=== PATIENT | male | born 1975 | race Caucasian/White ===

== ENCOUNTER 2019-01-03 17:39 | Inpatient (IN) | payer SELFPAY ==
--- NOTE | 2019-01-03 18:24 | Emergency Department Report ---
HPI - General Chief Complaint: Allergic Reaction ED Review of Systems ROS: Stated complaint: ALLERGIC REACTION Other details as noted in HPI Critical care attestation.: If time is entered above; I have spent that time in minutes in the direct care of this critically ill patient, excluding procedure time. ED Disposition Condition: Stable
--- NOTE | 2019-01-03 18:26 | Emergency Department Report ---
Chief Complaint: Allergic Reaction Stated Complaint: ALLERGIC REACTION - HPI History of Present Illness: CC RASH ON HANDS/FEET/TONGUE ENLARGED AND RED STARTED AFTER CLEANING 2 DAYS PMH SEIZURES SINCE 2017 PSH NONE DENIES CIG RX DOES NOT KNOW- CALLING FAMILY [facility] INTACT MSE COMPLETED MSE screening note: Focused history and physical exam performed. Due to findings the following was ordered: ED Disposition for MSE Condition: Stable
[2019-01-03 19:08] LABS: Bilirubin,Urine NEG (Negative); Blood,Urine NEG (Negative); Color,Urine Yellow (Yellow); Mucus,Urine FEW /HPF; Protein,Urine <15 mg/dL mg/dL (Negative)
[2019-01-03 19:33] LABS: Hematocrit 40.4 % (35.5-45.6); Hemoglobin 13.7 gm/dl (11.8-15.2); Mean Corpuscular HGB Conc 34 % (32-34); Mean Corpuscular Volume 85 fl (84-94); Platelet Count 260 K/mm3 (140-440); Red Blood Count 4.74 M/mm3 (3.65-5.03); Red Cell Distribution Width 14.2 % (13.2-15.2)
[2019-01-03 20:10] LABS: Basophils % (Manual) 0 % (0.0-1.8); RBC Morphology Normal; Total Cells Counted 100
[2019-01-03 20:15] LABS: Alanine Aminotransferase 70 units/L (7-56); Albumin 4.3 g/dL (3.9-5); BUN/Creatinine Ratio 12; Blood Urea Nitrogen 12 mg/dL (9-20); Calcium 9.1 mg/dL (8.4-10.2); Hemolysis Index 10
[2019-01-03] MEDS ORDERED: SOLU-Medrol ONE (20:47)
[2019-01-03] MEDS ORDERED: BENADRYL ONE (20:48)
[2019-01-03] MEDS ORDERED: PEPCID IV ONE ×2 (20:48→20:53)
[2019-01-03] MEDS ORDERED: BENADRYL IV ONE (20:53)
[2019-01-03] MEDS ORDERED: SOLU-Medrol IV ONE (20:53)
--- NOTE | 2019-01-03 21:00 | Emergency Department Report ---
HPI - General Chief Complaint: Allergic Reaction Time Seen by Provider: 01/03/19 18:44 - HPI HPI: Room 24 The patient is a 43-year-old male presenting with a chief complaint of allergic reaction. Family states approximately 5 days ago the patient was in his usual state of health when he began to clean the bathroom using Comet detergent. Family states the following day the patient awakened noticing swelling of his face hands and tongue. Patient noticed a rash over his feet and extremities. Patient admitted to subjective fever. Patient complains of pain from his tongue swelling but denies shortness of breath. The patient's significant other states she's been treating him with Benadryl for the past couple days but it has not helped Location: [See above] Duration: 4 days Quality: Swelling Severity: Moderate Modifying factors: [see above] Context: [see above] Mode of transportation: [not driving] ED Past Medical Hx - Past Medical History Previous Medical History?: Yes Hx Seizures: Yes - Surgical History Past Surgical History?: No - Family History Family history: no significant - Social History Smoking Status: Never Smoker Substance Use Type: None (denies illicit drug use) ED Review of Systems ROS: Stated complaint: ALLERGIC REACTION Other details as noted in HPI Constitutional: no symptoms reported Eyes: denies: eye pain ENT: other (tongue swelling) Respiratory: denies: shortness of breath Cardiovascular: denies: chest pain Endocrine: no symptoms reported Gastrointestinal: denies: abdominal pain Genitourinary: denies: dysuria Musculoskeletal: denies: back pain Skin: rash Neurological: denies: headache Physical Exam - Physical Exam Vital Signs: Vital Signs 01/03/19 01/03/19 18:22 20:45 Temperature 98.4 F Pulse Rate 84 68 Respiratory 16 12 Rate Blood Pressure 121/88 Blood Pressure 127/73 [Left] O2 Sat by Pulse 100 100 Oximetry Physical Exam: GENERAL: The patient is well-developed well-nourished male lying on stretcher not appearing to be in acute distress. [] HEENT: Normocephalic. Atraumatic. Extraocular motions are intact. Subglottic edema. Uvula midline. Posterior oropharynx within normal limits NECK: Supple. No stridor CHEST/LUNGS: Clear to auscultation. There is no respiratory distress noted. HEART/CARDIOVASCULAR: Regular. There is no tachycardia. There is no gallop rub or murmur. ABDOMEN: Abdomen is soft, nontender. Patient has normal bowel sounds. There is no abdominal distention. SKIN: There is a fine papular rash over bilateral upper extremities. There is no edema. There is no diaphoresis. NEURO: The patient is awake, alert, and oriented. The patient is cooperative. The patient has normal speech MUSCULOSKELETAL: There is no evidence of acute injury. ED Course Vital Signs 01/03/19 01/03/19 18:22 20:45 Temperature 98.4 F Pulse Rate 84 68 Respiratory 16 12 Rate Blood Pressure 121/88 Blood Pressure 127/73 [Left] O2 Sat by Pulse 100 100 Oximetry ED Medical Decision Making - Lab Data Result diagrams: 01/03/19 19:09 01/03/19 19:09 Laboratory Tests 01/03/19 01/03/19 01/03/19 18:44 19:09 19:09 WBC 11.0 RBC 4.74 Hgb 13.7 Hct 40.4 MCV 85 MCH 29 MCHC 34 RDW 14.2 Plt Count 260 Eos % (Auto) Vehicle Return Associate Add Manual Diff Complete Total Counted 100 Seg Neuts % (Manual) 65.0 Band Neutrophils % 0 Lymphocytes % (Manual) 9.0 L Reactive Lymphs % (Man) 0 Monocytes % (Manual) 7.0 Eosinophils % (Manual) 19.0 H Basophils % (Manual) 0 Metamyelocytes % 0 Myelocytes % 0 Promyelocytes % 0 Blast Cells % 0 Nucleated RBC % Not Reportable Seg Neutrophils # Man 7.2 Band Neutrophils # 0.0 Lymphocytes # (Manual) 1.0 L Abs React Lymphs (Man) 0.0 Monocytes # (Manual) 0.8 Eosinophils # (Manual) 2.1 H Basophils # (Manual) 0.0 Metamyelocytes # 0.0 Myelocytes # 0.0 Promyelocytes # 0.0 Blast Cells # 0.0 WBC Morphology Not Reportable Hypersegmented Neuts Not Reportable Hyposegmented Neuts Not Reportable Hypogranular Neuts Not Reportable Smudge Cells Not Reportable Toxic Granulation Not Reportable Toxic Vacuolation Not Reportable Dohle Bodies Not Reportable Pelger-Huet Anomaly Not Reportable Inez Rods Not Reportable Platelet Estimate Not Reportable Clumped Platelets Not Reportable Plt Clumps, EDTA Not Reportable Large Platelets Not Reportable Giant Platelets Not Reportable Platelet Satelliting Not Reportable Plt Morphology Comment Not Reportable RBC Morphology Normal Dimorphic RBCs Not Reportable Polychromasia Not Reportable Hypochromasia Not Reportable Poikilocytosis Not Reportable Anisocytosis Not Reportable Microcytosis Not Reportable Macrocytosis Not Reportable Spherocytes Not Reportable Pappenheimer Bodies Not Reportable Sickle Cells Not Reportable Target Cells Not Reportable Tear Drop Cells Not Reportable Ovalocytes Not Reportable Helmet Cells Not Reportable [place] Bodies Not Reportable [place] Rings Not Reportable Reilly Cells Not Reportable Bite Cells Not Reportable Crenated Cell Not Reportable Elliptocytes Not Reportable Acanthocytes (Spur) Not Reportable Rouleaux Not Reportable Hemoglobin C Crystals Not Reportable Schistocytes Not Reportable Malaria parasites Not Reportable Robert Bodies Not Reportable Hem Pathologist Commnt No Sodium 140 Potassium 3.8 Chloride 99.7 Carbon Dioxide 29 Anion Gap 15 BUN 12 Creatinine 1.0 Estimated GFR > 60 BUN/Creatinine Ratio 12 Glucose 121 H Calcium 9.1 Total Bilirubin 0.20 AST 39 ALT 70 H Alkaline Phosphatase 110 Total Protein 7.9 Albumin 4.3 Albumin/Globulin Ratio 1.2 Urine Color Yellow Urine Turbidity Clear Urine pH 5.0 Ur Specific [place] 1.024 Urine Protein <15 mg/dl Urine Glucose (UA) Neg Urine Ketones Neg Urine Blood Neg Urine Nitrite Neg Urine Bilirubin Neg Urine Urobilinogen 2.0 Ur Leukocyte Esterase Neg Urine WBC (Auto) 1.0 Urine RBC (Auto) 4.0 U Epithel Cells (Auto) < 1.0 Urine Mucus Few Carbamazepine 01/03/19 19:09 WBC RBC Hgb Hct MCV MCH MCHC RDW Plt Count Eos % (Auto) Add Manual Diff Total Counted Seg Neuts % (Manual) Band Neutrophils % Lymphocytes % (Manual) Reactive Lymphs % (Man) Monocytes % (Manual) Eosinophils % (Manual) Basophils % (Manual) Metamyelocytes % Myelocytes % Promyelocytes % Blast Cells % Nucleated RBC % Seg Neutrophils # Man Band Neutrophils # Lymphocytes # (Manual) Abs React Lymphs (Man) Monocytes # (Manual) Eosinophils # (Manual) Basophils # (Manual) Metamyelocytes # Myelocytes # Promyelocytes # Blast Cells # WBC Morphology Hypersegmented Neuts Hyposegmented Neuts Hypogranular Neuts Smudge Cells Toxic Granulation Toxic Vacuolation Dohle Bodies Pelger-Huet Anomaly Inez Rods Platelet Estimate Clumped Platelets Plt Clumps, EDTA Large Platelets Giant Platelets Platelet Satelliting Plt Morphology Comment RBC Morphology Dimorphic RBCs Polychromasia Hypochromasia Poikilocytosis Anisocytosis Microcytosis Macrocytosis Spherocytes Pappenheimer Bodies Sickle Cells Target Cells Tear Drop Cells Ovalocytes Helmet Cells Holley-[place] Bodies [place] Rings [place] Cells Bite Cells Crenated Cell Elliptocytes Acanthocytes (Spur) Rouleaux Hemoglobin C Crystals Schistocytes Malaria parasites Robert Bodies Hem Pathologist Commnt Sodium Potassium Chloride Carbon Dioxide Anion Gap BUN Creatinine Estimated GFR BUN/Creatinine Ratio Glucose Calcium Total Bilirubin AST ALT Alkaline Phosphatase Total Protein Albumin Albumin/Globulin Ratio Urine Color Urine Turbidity Urine pH Ur Specific [place] Urine Protein Urine Glucose (UA) Urine Ketones Urine Blood Urine Nitrite Urine Bilirubin Urine Urobilinogen Ur Leukocyte Esterase Urine WBC (Auto) Urine RBC (Auto) U Epithel Cells (Auto) Urine Mucus Carbamazepine 7.5 - Radiology Data Radiology results: report reviewed (lateral soft tissue neck x-ray), image reviewed (lateral soft tissue neck x-ray) interpreted by me: Lateral soft tissue neck x-ray-no prevertebral swelling, no evidence of epiglottitis [facility] [address] [place] [address] XRay Report Signed Patient: EVONNE RYDER MR#: [id number] : 1975 Acct:[id number] Age/Sex: 43 / M ADM Date: 01/03/19 Loc: ED Attending Dr: Ordering Physician: ROSS CASTRO MD Date of Service: 01/03/19 Procedure(s): XR neck soft tissue Accession Number(s): [id number] cc: ROSS CASTRO MD Fluoro Time In Minutes: FINAL REPORT EXAM: XR NECK SOFT TISSUE HISTORY: allergic reaction, tongue swelling TECHNIQUE: Soft tissue neck two views PRIORS: None. FINDINGS: No evidence for prevertebral soft tissue widening. The skeletal structures demonstrate no acute change No evidence for pharyngeal distention or epiglottic enlargement. No abnormal soft tissue gas collections are identified. IMPRESSION: Negative soft tissue neck Transcribed By: JORGE Dictated By: KERWIN WARREN MD Electronically Authenticated By: KERWIN WARREN MD Signed Date/Time: 01/03/192206 DD/ 05 TD/TT: 01/03/192205 - Differential Diagnosis acute allergic reaction Critical care attestation.: If time is entered above; I have spent that time in minutes in the direct care of this critically ill patient, excluding procedure time. ED Disposition Clinical Impression: Acute allergic reaction Disposition: OP ADMIT IP TO THIS HOSP Is pt being admited?: Yes Does the pt Need Aspirin: Yes Condition: Stable Referrals: PRIMARY CARE,MD [Primary Care Provider] - 3-5 Days Time of Disposition: 22:13 (hospitalist paged (Dr Red))
--- NOTE | 2019-01-03 22:07 | XRay Report ---
FINAL REPORT EXAM: XR NECK SOFT TISSUE HISTORY: allergic reaction, tongue swelling TECHNIQUE: Soft tissue neck two views PRIORS: None. FINDINGS: No evidence for prevertebral soft tissue widening. The skeletal structures demonstrate no acute zambrano e No evidence for pharyngeal distention or epiglottic enlargement. No abnormal soft tissue gas collecti ons are identified. IMPRESSION: Negative soft tissue neck
[2019-01-03 22:23] LABS: INR 1.02 (0.87-1.13)
[2019-01-03 22:24] LABS: Partial Thromboplastin Time 30.3 Sec. (24.2-36.6)
[2019-01-03] MEDS ORDERED: BENADRYL IV PRN (23:56)
[2019-01-03] MEDS ORDERED: ZOFRAN IV PRN (23:57)
[2019-01-04] MEDS: NACL 0.9% 1000 ML 1,000 ML IV SCH ×3 (00:23→17:08)
[2019-01-04] MEDS: SOLU-Medrol IV SCH ×3 (04:04→21:05)
--- NOTE | 2019-01-04 04:41 | History and Physical Report ---
CHIEF COMPLAINT: Swelling of the tongue, lips with itching in the hands. HISTORY OF PRESENT ILLNESS: The patient is a 43-year-old male, who was in his normal good state of health until 5 days ago when the patient cleaned his bathroom using Comet detergent. The family noted that the following day after the patient cleaned the bathroom, he woke up noticing swelling in the face, has swelling around the mouth and the tongue and then starting having rashes in his extremities especially the hand with some itching. There is history of some subjective fever. The patient denies history of chest pain. Denies history of shortness of breath and was receiving treatment at home with Benadryl for few days with symptoms not abating and the patient decided to come to the Emergency Room. PAST MEDICAL HISTORY: Pertinent for seizure disorder. PAST SURGICAL HISTORY: Unremarkable. FAMILY HISTORY: Family history is noncontributory. SOCIAL HISTORY: The patient does not smoke, does not drink alcohol and does not use illicit drugs. MEDICATIONS: The patient is on [id number] medications notably Benadryl. ALLERGIES: There are no known drug allergies. REVIEW OF SYSTEMS: CONSTITUTIONAL: There is fever with no chills, no diaphoresis. HEENT: There is no headache or sore throat, but there is pain in the tongue area and swelling in the tongue area. CARDIOVASCULAR SYSTEM: There is no chest pain or orthopnea. RESPIRATORY SYSTEM: There is no shortness of breath or cough. GASTROINTESTINAL SYSTEM: There is no abdominal pain, nausea, vomiting, diarrhea or constipation. NEUROLOGICAL SYSTEM: There is no numbness, no dizziness, no altered mental status. MUSCULOSKELETAL SYSTEM: There is no joint pain or swelling. DERMATOLOGICAL SYSTEM: There is skin rash and there is itching. GENITOURINARY SYSTEM: There is no dysuria, hematuria, or flank pain. Rest of system review is normal. PHYSICAL EXAMINATION: GENERAL: At the time of exam, the patient was found to be alert, oriented x 3 and not in acute distress. VITAL SIGNS: At the initial time of presentation showed temperature of 98.4 degrees Fahrenheit, pulse of 84, respirations 16, blood pressure 127/73, O2 sat 100% on room air. HEENT: Showed pupils to be equal, round, reactive to light and accommodating. Extraocular muscles are intact. Oral mucosa shows swelling of the lips and swelling of the tongue. NECK: Supple with no JVD or carotid bruit. CARDIOVASCULAR SYSTEM: Showed normal first and second heart sounds with no gallops or murmurs. RESPIRATORY SYSTEM: Show good air entry on both sides of the lungs with no abnormal breath sounds. GASTROINTESTINAL SYSTEM: Show abdomen to be full, soft, nontender with no organomegaly or rigidity. NEUROLOGICAL: Shows no focal deficit. MUSCULOSKELETAL SYSTEM: Show no joint swelling or tenderness. DERMATOLOGICAL SYSTEM: Show some maculopapular involving the palms, the wrists area. GENITOURINARY SYSTEM: Show no costovertebral angle tenderness. PERTINENT LABORATORY DATA AND IMAGING STUDIES: The patient had x-ray of the soft tissue of the neck done that show negative soft tissue of the neck and the lab results show CBC with unremarkable results except for elevated eosinophil count of 19% in the CBC differential. The patient's coagulation studies were unremarkable. Chemistry shows slightly elevated ALT of 70 with normal AST. Urinalysis was unremarkable. DIAGNOSIS: Allergic reaction, most likely due to Comet detergent. PLAN OF ACTION: 1. The patient will be admitted to telemetry. 2. The patient will be on IV normal saline running at 125 mL an hour. 3. The patient will be on IV Solu-Medrol 60 mg IV every 8 hours and will be on IV Benadryl 25 mg every 6 hours as needed for itching and rash. 4. The patient will be on Pepcid 20 mg by mouth twice daily and will be on p.r.n. medications like Tylenol 650 mg by mouth every 4 hours for fever and headache and IV Zofran 4 mg every 8 hours as needed for nausea and vomiting. 5. The patient's diet will be regular diet. JOB# [id number] OCN/NTS MTDD
[2019-01-04] MEDS: PEPCID PO SCH ×2 (09:43→22:21)
[2019-01-04] MEDS: TYLENOL PO PRN (09:46)
--- NOTE | 2019-01-04 10:28 | Event Note ---
Date: 01/04/19 This is a follow-up from an admission earlier this morning. The patient has been seen and examined. We will continue the plan as outlined in H&P. Total visit time 25 minutes with greater than 50% spent with coordination of care and counseling.
[2019-01-05] MEDS: SOLU-Medrol IV SCH ×3 (04:45→20:59)
[2019-01-05] MEDS: PEPCID PO SCH ×2 (09:39→21:54)
[2019-01-05] MEDS: NACL 0.9% 1000 ML 1,000 ML IV SCH (09:55)
--- NOTE | 2019-01-05 17:51 | Progress Note ---
Assessment and Plan Assessment and plan: Allergic reaction to detergent - Patient is admitted to the floor cause of tongue swelling - Patient IV Solu-Medrol, Pepcid, and Benadryl - Rash resolved - We will monitor the patient for one more day and see if and swelling is resolved and consider discharge Seizure disorder - Continue home medications DVT prophylaxis - on lovenox Disposition - Positive discharge tomorrow History Interval history: Patient was seen and evaluated this morning, patient has tongue swelling and deep voice. Not in respiratory distress, no wheezing. Hospitalist Physical - Physical exam Narrative exam: Not in cardiopulmonary distress. The patient appeared well nourished and normally developed. Vital signs as documented. Head exam is unremarkable. No scleral icterus . Mild tongue swelling. Neck is without jugular venous distension, thyromegaly, or carotid bruits. Lungs are clear to auscultation. Cardiac exam reveals regular rate and Rhythm. First and second heart sounds normal. No murmurs, rubs or gallops. Abdominal exam reveals normal bowel sounds, no masses, no organomegaly and no aortic enlargement. Extremities are nonedematous and both femoral and pedal pulses are normal. DRY WALL APPLICATOR: Alert and oriented 3. No focal weakness. - Constitutional Vitals: Temp Pulse Resp BP Pulse Ox 98.1 F 69 18 123/80 95 01/05/19 12:00 01/05/19 12:00 01/05/19 12:00 01/05/19 12:00 01/05/19 12:00 Results - Labs CBC & Chem 7: 01/03/19 19:09 01/03/19 19:09 Labs: Laboratory Last Values WBC 11.0 K/mm3 (4.5-11.0) 01/03/19 19:09 RBC 4.74 M/mm3 (3.65-5.03) 01/03/19 19:09 Hgb 13.7 gm/dl (11.8-15.2) 01/03/19 19:09 Hct 40.4 % (35.5-45.6) 01/03/19 19:09 MCV 85 fl (84-94) 01/03/19 19:09 MCH 29 pg (28-32) 01/03/19 19: MCHC 34 % (32-34) 01/03/19 19:09 RDW 14.2 % (13.2-15.2) 01/03/19 19:09 Plt Count 260 K/mm3 (140-440) 01/03/19 19:09 Eos % (Auto) Travel Registered Nurse Nicu 01/03/19 19:09 Add Manual Diff Complete 01/03/19 19:09 Total Counted 100 01/03/19 19:09 Seg Neuts % (Manual) 65.0 % (40.0-70.0) 01/03/19 19:09 Band Neutrophils % 0 % 01/03/19 19:09 Lymphocytes % (Manual) 9.0 % (13.4-35.0) L 01/03/19 19:09 Reactive Lymphs % (Man) 0 % 01/03/19 19:09 Monocytes % (Manual) 7.0 % (0.0-7.3) 01/03/19 19:09 Eosinophils % (Manual) 19.0 % (0.0-4.3) H 01/03/19 19:09 Basophils % (Manual) 0 % (0.0-1.8) 01/03/19 19:09 Metamyelocytes % 0 % 01/03/19 19:09 Myelocytes % 0 % 01/03/19 19:09 Promyelocytes % 0 % 01/03/19 19:09 Blast Cells % 0 % 01/03/19 19:09 Nucleated RBC % Not Reportable 01/03/19 19:09 Seg Neutrophils # Man 7.2 K/mm3 (1.8-7.7) 01/03/19 19:09 Band Neutrophils # 0.0 K/mm3 01/03/19 19:09 Lymphocytes # (Manual) 1.0 K/mm3 (1.2-5.4) L 01/03/19 19:09 Abs React Lymphs (Man) 0.0 K/mm3 01/03/19 19:09 Monocytes # (Manual) 0.8 K/mm3 (0.0-0.8) 01/03/19 19:09 Eosinophils # (Manual) 2.1 K/mm3 (0.0-0.4) H 01/03/19 19:09 Basophils # (Manual) 0.0 K/mm3 (0.0-0.1) 01/03/19 19:09 Metamyelocytes # 0.0 K/mm3 01/03/19 19:09 Myelocytes # 0.0 K/mm3 01/03/19 19:09 Promyelocytes # 0.0 K/mm3 01/03/19 19:09 Blast Cells # 0.0 K/mm3 01/03/19 19:09 WBC Morphology Not Reportable 01/03/19 19:09 Hypersegmented Neuts Not Reportable 01/03/19 19:09 Hyposegmented Neuts Not Reportable 01/03/19 19:09 Hypogranular Neuts Not Reportable 01/03/19 19:09 Smudge Cells Not Reportable 01/03/19 19:09 Toxic Granulation Not Reportable 01/03/19 19:09 Toxic Vacuolation Not Reportable 01/03/19 19:09 Dohle Bodies Not Reportable 01/03/19 19:09 Pelger-Huet Anomaly Not Reportable 01/03/19 19:09 Inez Rods Not Reportable 01/03/19 19:09 Platelet Estimate Not Reportable 01/03/19 19:09 Clumped Platelets Not Reportable 01/03/19 19:09 Plt Clumps, EDTA Not Reportable 01/03/19 19:09 Large Platelets Not Reportable 01/03/19 19:09 Giant Platelets Not Reportable 01/03/19 19:09 Platelet Satelliting Not Reportable 01/03/19 19:09 Plt Morphology Comment Not Reportable 01/03/19 19:09 RBC Morphology Normal 01/03/19 19:09 Dimorphic RBCs Not Reportable 01/03/19 19:09 Polychromasia Not Reportable 01/03/19 19:09 Hypochromasia Not Reportable 01/03/19 19:09 Poikilocytosis Not Reportable 01/03/19 19:09 Anisocytosis Not Reportable 01/03/19 19:09 Microcytosis Not Reportable 01/03/19 19:09 Macrocytosis Not Reportable 01/03/19 19:09 Spherocytes Not Reportable 01/03/19 19:09 Pappenheimer Bodies Not Reportable 01/03/19 19:09 Sickle Cells Not Reportable 01/03/19 19:09 Target Cells Not Reportable 01/03/19 19:09 Tear Drop Cells Not Reportable 01/03/19 19:09 Ovalocytes Not Reportable 01/03/19 19:09 Helmet Cells Not Reportable 01/03/19 19:09 Holley-[place] Bodies Not Reportable 01/03/19 19:09 [place] Rings Not Reportable 01/03/19 19:09 Reilly Cells Not Reportable 01/03/19 19:09 Bite Cells Not Reportable 01/03/19 19:09 Crenated Cell Not Reportable 01/03/19 19:09 Elliptocytes Not Reportable 01/03/19 19:09 Acanthocytes (Spur) Not Reportable 01/03/19 19:09 Rouleaux Not Reportable 01/03/19 19:09 Hemoglobin C Crystals Not Reportable 01/03/19 19:09 Schistocytes Not Reportable 01/03/19 19:09 Malaria parasites Not Reportable 01/03/19 19:09 Robert Bodies Not Reportable 01/03/19 19:09 Hem Pathologist Commnt No 01/03/19 19:09 PT 14.0 Sec. (12.2-14.9) 01/03/19 21:55 INR 1.02 (0.87-1.13) 01/03/19 21:55 APTT 30.3 Sec. (24.2-36.6) 01/03/19 21:55 Sodium 140 mmol/L (137-145) 01/03/19 19:09 Potassium 3.8 mmol/L (3.6-5.0) 01/03/19 19:09 Chloride 99.7 mmol/L (98-107) 01/03/19 19:09 Carbon Dioxide 29 mmol/L (22-30) 01/03/19 19:09 Anion Gap 15 mmol/L 01/03/19 19:09 BUN 12 mg/dL (9-20) 01/03/19 19:09 Creatinine 1.0 mg/dL (0.8-1.5) 01/03/19 19:09 Estimated GFR > 60 ml/min 01/03/19 19:09 BUN/Creatinine Ratio 12 % 01/03/19 19:09 Glucose 121 mg/dL (75-100) H 01/03/19 19:09 Calcium 9.1 mg/dL (8.4-10.2) 01/03/19 19:09 Total Bilirubin 0.20 mg/dL (0.1-1.2) 01/03/19 19:09 AST 39 units/L (5-40) 01/03/19 19:09 ALT 70 units/L (7-56) H 01/03/19 19:09 Alkaline Phosphatase 110 units/L (35-129) 01/03/19 19:09 Total Protein 7.9 g/dL (6.3-8.2) 01/03/19 19:09 Albumin 4.3 g/dL (3.9-5) 01/03/19 19:09 Albumin/Globulin Ratio 1.2 % 01/03/19 19:09 Urine Color Yellow (Yellow) 01/03/19 18:44 Urine Turbidity Clear (Clear) 01/03/19 18:44 Urine pH 5.0 (5.0-7.0) 01/03/19 18:44 Ur Specific [place] 1.024 (1.003-1.030) 01/03/19 18:44 Urine Protein <15 mg/dl mg/dL (Negative) 01/03/19 18:44 Urine Glucose (UA) Neg mg/dL (Negative) 01/03/19 18:44 Urine Ketones Neg mg/dL (Negative) 01/03/19 18:44 Urine Blood Neg (Negative) 01/03/19 18:44 Urine Nitrite Neg (Negative) 01/03/19 18:44 Urine Bilirubin Neg (Negative) 01/03/19 18:44 Urine Urobilinogen 2.0 mg/dL (<2.0) 01/03/19 18:44 Ur Leukocyte Esterase Neg (Negative) 01/03/19 18:44 Urine WBC (Auto) 1.0 /HPF (0.0-6.0) 01/03/19 18:44 Urine RBC (Auto) 4.0 /HPF (0.0-6.0) 01/03/19 18:44 U Epithel Cells (Auto) < 1.0 /HPF (0-13.0) 01/03/19 18:44 Urine Mucus Few /HPF 01/03/19 18:44 Carbamazepine 7.5 ug/mL (4-12) 01/03/19 19:09 RPR Nonreactive (Nonreactive) 01/03/19 19:09 Nutrition/Malnutrition Assess - Dietary Evaluation Nutrition/Malnutrition Findings: Nutrition Notes Start: 01/05/19 15:44 Freq: Status: Active Protocol: Document 01/05/19 15:44 OL (Rec: 01/05/19 15:50 OL [id number]) Nutrition Notes Need for 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 Pt. with swollen throat/mouth. He reports taste is altered and has difficulty chewing solid foods. Pt. reports improvements in PO tolerance compared to earlier this week. No wt. changes noted at this time. Pt. amenable to ONS. Burn Absent Trauma Absent Difficulty In Swallowing Chewing #1 Nutrition Diagnosis Biting/Chewing (masticatory) difficulty Etiology allergic reactions As Evidenced by Signs and Symptoms throat/mouth pain, pt. unable to tolerate solid textures at this time Is patient on ventilator? No Is Patient Ambulatory and/or Out of Bed Yes REE-([facility]-ambulatory/OOB) [ [id number] [id number]] Calculation Used for Recommendations [facility] Additional Notes protein (0.8-1g/kg): 75-94g daily fluid: 1mL/kcal or per MD Nutrition Intervention Change Diet Order: Continue regular, add full liquid soup to meals Add Supplement/Snack (indicate name/kcal Ensure Enlive BID /protein ) Provides kCal: 700 Provides Protein (gm) 40 Goal #1 ONS tolerance Goal #2 PO and ONS to meet 75-100% of energy and protein needs Follow-Up By: 01/07/19 Additional Comments f/u: intakes
[2019-01-05] MEDS: TYLENOL PO PRN (20:57)
[2019-01-05] MEDS ORDERED: LOVENOX SUB-Q SCH (22:00)
[2019-01-06] MEDS: SOLU-Medrol IV SCH (03:56)
[2019-01-06] MEDS: PEPCID PO SCH (10:24)
[2019-01-06 17:51] VITALS: BP 111/75
--- NOTE | 2019-01-06 18:34 | Discharge Summary ---
Providers - Providers Date of Admission: 01/03/19 22:30 Attending physician: HUGH REDMAN MD Primary care physician: [facility] Hospitalization Reason for admission: allergic reaction Condition: Stable Pertinent studies: x-ray of the neck soft tissue IMPRESSION: Negative soft tissue neck Hospital course: 43-year-old male presenting with a chief complaint of allergic reaction. Family states approximately 5 days ago the patient was in his usual state of health when he began to clean the bathroom using Comet detergent. Family states the following day the patient awakened noticing swelling of his face hands and tongue. Patient noticed a rash over his feet and extremities. Patient admitted to subjective fever. Patient complains of pain from his tongue swelling but denies shortness of breath. The patient's significant other states she's been treating him with Benadryl for the past couple days but it has not helped. The patient has swelling of face, tongue and change in voice. The patient was admitted to the floor and treated with IV solumedrol, Benadryl and famotidine. patient was closely observed for respiratory compromise. Patient's swelling and rash subsiding and no signs of respiratory distress and discharged home in a stable condition. patient was given PO medication at the time of discharge. Disposition: DC-01 TO HOME OR SELFCARE Time spent for discharge: 32 minutes - Discharge Diagnoses (1) Acute allergic reaction Status: Acute Core Measure Documentation - Palliative Care Palliative Care/ Comfort Measures: Not Applicable - Core Measures Any of the following diagnoses?: none Exam - Physical Exam Narrative exam: Not in cardiopulmonary distress. The patient appeared well nourished and normally developed. Vital signs as documented. Head exam is unremarkable. No scleral icterus . Mild tongue swelling. Neck is without jugular venous distension, thyromegaly, or carotid bruits. Lungs are clear to auscultation. Cardiac exam reveals regular rate and Rhythm. First and second heart sounds normal. No murmurs, rubs or gallops. Abdominal exam reveals normal bowel sounds, no masses, no organomegaly and no aortic enlargement. Extremities are nonedematous and both femoral and pedal pulses are normal. 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 No focal weakness. - Constitutional Vitals: Temp Pulse Resp BP Pulse Ox 97.8 F 64 18 111/75 97 01/06/19 16:26 01/06/19 03:34 01/06/19 16:26 01/06/19 16:26 01/06/19 03:34 Plan Activity: no restrictions Weight Bearing Status: Full Weight Bearing Diet: regular Follow up with: PRIMARY CARE, [Primary Care Provider] - 3-5 Days JOSE INMAN MD [Staff Physician] - 7 Days Prescriptions: diphenhydrAMINE [Benadryl CAP] 25 mg PO Q8HR PRN #20 capsule PRN Reason: Itching Famotidine 20 mg PO BID #20 tablet Prednisone [predniSONE 10 mg (6-Day Pack, 21 Tabs)] 10 mg PO .TAPER #1 tab.ds.pk
== END 2019-01-06 19:30 | disposition home or self-care (01) | DRG 916 ==
LOC: ED 17:39 → 4A 22:30
PROVIDERS: ADMIT Internal Medicine; ATTEND Internal Medicine
DX: T78.49XA Other allergy, initial encounter (principal); X58.XXXA Exposure to other specified factors, initial encounter
CPT/HCPCS: 36415; 70360; 80053; 80156; 81001; 85007; 85025; 85610; 85730; 86592; 87040; G0378; J1200; J1650; J2920; J2930; J7030

== ENCOUNTER 2019-01-28 16:35 | Emergency (ER) | payer OTHER ==
[2019-01-28 16:41] VITALS: BP 124/66
--- NOTE | 2019-01-28 16:41 | Emergency Department Report ---
Blank Doc - Documentation Documentation: This is a 43-year-old male that presents with generalized body rash x3 weeks. This initial assessment/diagnostic orders/clinical plan/treatment(s) is/are subject to change based on patient's health status, clinical progression and re- assessment by fellow clinical providers in the ED. Further treatment and workup at subsequent clinical providers discretion. Patient/guardians urged not to elope from the ED as their condition may be serious if not clinically assessed and managed. Initial orders include: 1- Patient sent to [facility] for further evaluation and treatment
[2019-01-28] MEDS ORDERED: DECADRON IM ONE (18:28)
--- NOTE | 2019-01-28 18:33 | Emergency Department Report ---
ED Rash HPI - HPI Chief Complaint: Allergic Reaction Stated Complaint: ALLERGIC REACTION/RASH Time Seen by Provider: 01/28/19 16:40 Location: Other Suspected Cause: Other (ALLERGIC RESPONSE DATING BACK 1 MONTH) Rash Symptoms: Yes Itching, No Facial Swelling, No Tongue/Oral Swelling, No Breathing Difficulties, No Choking Sensation, No Wheezing/Dyspnea, No Peeling, No Blistering, No Fever, No Lightheaded, No Malaise, No Myalgias Severity: moderate Other History: Patient is a 43-year-old -[place] male who comes to the ER today with a one-month history of an allergic reaction to what they thought was calm cleaning detergent. Patient ended up being admitted for this reaction due to some airway issues, subsequently discharged home. He was sent home on baclofen and Pepcid as well as some prednisone but he states that he now has what appears to be a chronic dermatitis rash that is on his arms and now his torso. He has no oral OR EYE lesions. He is not tachycardic and is not hypotensive. There is no desquamation of the skin. This is not concerning for Olivier-Luan's or such. It appears to be more of a chronic type dermatitis that patient is going to need either [facility] or the burn clinic due to their skin expertise, to get resolution 4. The skin is very dry I think the dry skin itself is at least contributing or confounding his underlying skin issues. PMH. SEIZURES ED Review of Systems ROS: Stated complaint: ALLERGIC REACTION/RASH Other details as noted in HPI Comment: All other systems reviewed and negative Constitutional: denies: see HPI Eyes: denies: eye pain ENT: denies: ear pain Respiratory: denies: see HPI Cardiovascular: denies: dyspnea on exertion Endocrine: denies: intolerance to cold Gastrointestinal: denies: vomiting Genitourinary: denies: urgency Musculoskeletal: denies: back pain Skin: denies: rash Neurological: denies: headache Psychiatric: denies: depression Hematological/Lymphatic: denies: easy bleeding ED Past Medical Hx - Past Medical History Previous Medical History?: Yes Hx Seizures: Yes - Surgical History Past Surgical History?: No - Social History Smoking Status: Never Smoker - Medications Home Medications: Home Medications Medication Instructions Recorded Confirmed Last Taken Type carBAMazepine [Carbamazepine] 200 mg PO BID 01/03/19 01/03/19 Unknown History Famotidine 20 mg PO BID #20 tablet 01/06/19 Unknown Rx diphenhydrAMINE [Benadryl CAP] 25 mg PO Q8HR PRN #20 capsule 01/06/19 Unknown Rx Rash Exam - Exam General: Vital signs noted. No distress. Alert and acting appropriately. HEENT: No Periorbital Edema, No Conjuctival Injection, No Chemosis, No Perioral Edema, No Tongue Edema, No Uvular Edema, No Compromised Airway, No Drooling Lungs: Yes Good Air Exchange, No Wheezes, No Ronchi, No Stridor, No Cough, No Labored Respirations, No Retractions, No Use of Accessory Muscles, No Other Abnormal Lung Sounds Heart: Yes Regular, No Murmur Skin: Yes Excoriations, Yes Erythema, No Urticarial Rash, No Maculopapular Rash, No Morbilliform rash, No Bulla(e), No Weeping, No Tenderness, No Edema, No Encrustations Other: Positive: Abdomen Normal, Neurologic Normal, Musculoskeletal Normal ED Course Vital Signs 01/28/19 16:41 Temperature 97.9 F Pulse Rate 62 Respiratory 16 Rate Blood Pressure 124/66 O2 Sat by Pulse 100 Oximetry ED Medical Decision Making - Medical Decision Making SEE HPI Vital Signs 01/28/19 16:41 Temperature 97.9 F Pulse Rate 62 Respiratory 16 Rate Blood Pressure 124/66 O2 Sat by Pulse 100 Oximetry MEDICATED WITH DECADRON A long discussion with the patient about his need to see dermatology or a learning operations specialist to help get to the bottom of his excoriated to appearing rash. He verbalizes understanding. Patient has been given referrals to Dr. López at the [facility] given his expertise in wound care. He has also been given referrals to dermatology. I am not sending the patient home on further steroids because this will alter the physician's ability to assess the rash. I've encouraged the patient to take with him to any office visits all of his medical records. Vital signs are stable patient is nontoxic, he is ambulatory, he is afebrile. He lives with his and is reliable for follow-up. Patient discharged home Critical care attestation.: If time is entered above; I have spent that time in minutes in the direct care of this critically ill patient, excluding procedure time. ED Disposition Clinical Impression: Dermatitis, Chronic pruritic rash in adult Disposition: DC-01 TO HOME OR SELFCARE Is pt being admited?: No Does the pt Need Aspirin: No Condition: Stable Additional Instructions: CONTINUE YOUR MED REGIMEN YOU HAVE BEEN TAKING PEPCID AND PRN BENADRYL YOU NEED TO SEE A SPECIALIST TO BIOPSY THIS RASH AND DETERMINE WHAT IS CAUSING IT SO IT CAN BE PROPERLY TREATED. THE 2 OPTIONS ARE 1. DERMATOLOGY REFERRALS BELOW 2. THE [facility] DUE TO THEIR EXPERTISE IN WOUND CARE. DO NOT USE ANYTHING THAT WOULD DRY YOUR SKIN OUT FURTHER. IN FACT TRY TO PUT MOISTURE BACK IN YOUR SKIN. THE DRY SKIN IS AT LEAST NOT HELPING THE CURRENT SITUATION. COCOA BUTTER OR ANOTHER HYDRATING LOTION MAY BE HELPFUL CALL THE REFERRALS IN THE AM AND SEE WHICH YOU CAN GET INTO THE [facility] Referrals: DELMAR ALFRED MD [Staff Physician] - 3-5 Days BARBARA FLORES MD [Staff Physician] - 3-5 Days ENZO RILEY MD [Referring] - 3-5 Days [facility] [Outside] - 3-5 Days Time of Disposition: 18:33
== END 2019-01-28 18:59 | disposition home or self-care (01) ==
LOC: ED 16:35
DX: L30.9 Dermatitis, unspecified (principal); L29.8 Other pruritus
CPT/HCPCS: 96372; 99283; J1100